=== PATIENT | male | born 1985 | race Caucasian/White ===

== ENCOUNTER 2018-06-14 00:10 | Emergency (ER) | payer SELFPAY ==
[~2018-06-14] VITALS: Ht 167.6 cm; Wt 73.0 kg
[2018-06-14] MEDS ORDERED: KETOROLAC 60MG/2ML VIAL IM ONE (04:30)
[2018-06-14 05:00] VITALS: BP 107/59
== END 2018-06-14 05:16 | disposition home or self-care (01) ==
LOC: ER 00:10
DX: R07.89 Other chest pain (principal); Z48.00 Encounter for change or removal of nonsurgical wound dressing; F17.200 Nicotine dependence, unspecified, uncomplicated
CPT/HCPCS: 71045; 96372; 99283; J1885